=== PATIENT | male | born 1955 | race Caucasian/White ===

== ENCOUNTER 2019-03-02 17:53 | Emergency (ER) | payer OTHER ==
[~2019-03-02] VITALS: Ht 188 cm; Wt 95.0 kg
[2019-03-02] MEDS ORDERED: ASPIRIN 81 MG TABLET CHEW ONE (18:14)
[2019-03-02] MEDS ORDERED: ASPIRIN 81 MG TABLET CHEW PO ONE (18:30)
--- NOTE | 2019-03-02 18:32 | NUR ---
PT REPORTS CONSTANT L SHOULDER/NECK PAIN X THREE DAYS. +LUE PAIN/NUMBNESS. "ITS WORSE THE DAY GOES ON". DENIES PRODUCTIVE COUGH/FEVER/TRAUMA/DIAPHORESIS. PWD. BP/SPO2/ECG MONITORING IN PLACE. NSR ON MONITOR. SO AT BEDSIDE.
[2019-03-02 18:34] LABS: MEAN CORPUSCULAR HEMOGLOBIN 29.4 pg (27.5-34.5); MEAN CORPUSCULAR HGB CONC 33.3 g/dL (33.2-36.2); MEAN CORPUSCULAR VOLUME 88.3 fL (81-97); PLATELET COUNT 230 x10^3/uL (130-400); RED BLOOD COUNT 4.92 x10^6/uL (4.38-5.82); RED CELL DISTRIBUTION WIDTH 15.1 % (9.4-14.8)
[2019-03-02 18:45] LABS: ALANINE AMINOTRANSFERASE 29 U/L (12-78); ALBUMIN 4.1 g/dL (3.4-5.0); ANION GAP 9 mmol/L (5-15); CALCIUM 8.8 mg/dL (8.5-10.1); CHLORIDE 105 mmol/L (98-107); CREATININE 1.14 mg/dL (0.7-1.3)
[2019-03-02 18:49] LABS: ALKALINE PHOSPHATASE 64 U/L (45-117); BILIRUBIN,TOTAL 0.5 mg/dL (0.2-1.0); MD SCAN; TOTAL PROTEIN 7.4 g/dL (6.4-8.2); TROPONIN I < 0.015 ng/mL (0.000-0.045)
[2019-03-02 18:50] LABS: LYMPHOCYTES % (AUTO) 24 % (22-44); MONOCYTES % (AUTO) 9 % (2-9); NEUTROPHILS % (AUTO) 61 % (42-75)
[2019-03-02 18:51] LABS: BASOPHILS # (AUTO) 0.07 x10^3/uL (0-0.1); BASOPHILS % (AUTO) 1 % (0-1); EOSINOPHILS % (AUTO) 5 % (1-7); LYMPHOCYTES # (AUTO) 1.43 x10^3/uL (1-3.4); MONOCYTES # (AUTO) 0.52 x10^3/uL (0.2-0.8); NEUTROPHILS # (AUTO) 3.66 x10^3/uL (1.8-6.8)
[2019-03-02 19:16] VITALS: BP 148/85
--- NOTE | 2019-03-02 19:17 | NUR ---
POC IS DC. PT OFF MONITORING AND ALLOWED TO DRESS. SO AT BEDSIDE.
--- NOTE | 2019-03-02 19:21 | NUR ---
DC EDUCATION PROVIDED, PT DEMONSTRATES UNDERSTANDING. PT AMBULATED STEADILY TO DC WITH RN AND SO
== END 2019-03-02 19:29 | disposition home or self-care (01) ==
LOC: ED 19:05
DX: M54.12 Radiculopathy, cervical region (principal); M25.512 Pain in left shoulder; Z87.891 Personal history of nicotine dependence
CPT/HCPCS: 36415; 71046; 72050; 80053; 84484; 85025; 93005; 99284

== ENCOUNTER 2019-09-06 14:42 | Observation (INO) | payer OTHER, MEDICARE ==
[~2019-09-06] VITALS: Ht 188 cm; Wt 95.0 kg
--- NOTE | 2019-09-06 15:08 | NUR ---
PT AMBULATED TO ROOM WITH A STEADY GAIT. CHANGED INTO A HOSPITAL GOWN AND CONNECTED TO MONITORS. PT IN WITH , [facility], WITH C/O SHORTNESS OF BREATH, DIZZINESS, LIGHT-HEADNESS. [facility] ALSO REPORTS PT HAD SLURRED SPEECH 4 WEEKS AGO. MD AT BEDSIDE.
[2019-09-06] MEDS ORDERED: ASPIRIN 81 MG TABLET CHEW ONE (15:19)
[2019-09-06] MEDS ORDERED: ASPIRIN 81 MG TABLET CHEW PO ONE (15:30)
[2019-09-06 15:41] LABS: BASOPHILS # (AUTO) 0.02 x10^3/uL (0-0.1); BASOPHILS % (AUTO) 0 % (0-1); EOSINOPHILS # (AUTO) 0.31 x10^3/uL (0-0.4); EOSINOPHILS % (AUTO) 4 % (1-7); LYMPHOCYTES # (AUTO) 1.45 x10^3/uL (1-3.4); LYMPHOCYTES % (AUTO) 19 % (22-44); MD NO; MEAN CORPUSCULAR HEMOGLOBIN 29.4 pg (27.5-34.5); MEAN CORPUSCULAR HGB CONC 33.5 g/dL (33.2-36.2); MEAN CORPUSCULAR VOLUME 87.7 fL (81-97); MEAN PLATELET VOLUME 8.1 fL (7.4-10.4); MONOCYTES # (AUTO) 0.69 x10^3/uL (0.2-0.8); MONOCYTES % (AUTO) 9 % (2-9); NEUTROPHILS # (AUTO) 5.09 x10^3/uL (1.8-6.8); NEUTROPHILS % (AUTO) 67 % (42-75); PLATELET COUNT 229 x10^3/uL (130-400); RED CELL DISTRIBUTION WIDTH 15.1 % (9.4-14.8)
[2019-09-06 15:44] LABS: ALANINE AMINOTRANSFERASE 21 U/L (12-78); ALBUMIN 3.7 g/dL (3.4-5.0); ANION GAP 5 mmol/L (5-15); CALCIUM 8.7 mg/dL (8.5-10.1); CHLORIDE 107 mmol/L (98-107); CREATININE 1.23 mg/dL (0.7-1.3)
[2019-09-06 15:49] LABS: ALKALINE PHOSPHATASE 60 U/L (45-117); BILIRUBIN,TOTAL 0.5 mg/dL (0.2-1.0); TROPONIN I < 0.015 ng/mL (0.000-0.045)
--- NOTE | 2019-09-06 16:16 | NUR ---
pt resting in [facility]. pt's aox4. resps even and unlabored. all monitors in place. call light within reach.
--- NOTE | 2019-09-06 16:24 | NUR ---
hospitalist at bedside to evaluate at this time.
[2019-09-06] MEDS ORDERED: ACETAMINOPHEN 325 MG TABLET PO PRN (17:00)
--- NOTE | 2019-09-06 17:04 | NUR ---
Report called to [facility] Pt to transfer to room 511-1. Updated pt and pts spouse.
[2019-09-06 17:31] VITALS: BP 132/78
[2019-09-06] MEDS: ENOXAPARIN 40 MG/0.4 ML SQ SCH (18:01)
[2019-09-06 19:39] VITALS: BP 131/78
[2019-09-06] MEDS ORDERED: ATORVASTATIN 20 MG TABLET PO SCH (21:00)
[2019-09-07 00:20] VITALS: BP 128/82
[2019-09-07 05:54] LABS: BASOPHILS # (AUTO) 0.03 x10^3/uL (0-0.1); BASOPHILS % (AUTO) 1 % (0-1); EOSINOPHILS # (AUTO) 0.27 x10^3/uL (0-0.4); EOSINOPHILS % (AUTO) 5 % (1-7); LYMPHOCYTES % (AUTO) 20 % (22-44); MD NO; MEAN CORPUSCULAR HEMOGLOBIN 29.1 pg (27.5-34.5); MEAN CORPUSCULAR VOLUME 88.3 fL (81-97); MEAN PLATELET VOLUME 8.5 fL (7.4-10.4); MONOCYTES # (AUTO) 0.57 x10^3/uL (0.2-0.8); MONOCYTES % (AUTO) 10 % (2-9); NEUTROPHILS # (AUTO) 3.65 x10^3/uL (1.8-6.8); NEUTROPHILS % (AUTO) 65 % (42-75); PLATELET COUNT 187 x10^3/uL (130-400); RED CELL DISTRIBUTION WIDTH 15.4 % (9.4-14.8)
[2019-09-07 06:00] LABS: ANION GAP 4 mmol/L (5-15); CALCIUM 8.6 mg/dL (8.5-10.1); CHLORIDE 108 mmol/L (98-107)
[2019-09-07] MEDS ORDERED: ASPIRIN 81 MG TABLET EC PO SCH (06:00)
[2019-09-07 06:03] LABS: CHOL/HDL RATIO 4.9; CHOLESTEROL, TOTAL 212 mg/dL (140-239); CREATININE 0.97 mg/dL (0.7-1.3); HDL CHOL % 20 % (26-37); HDL CHOLESTEROL (DIRECT) 43 mg/dL (40-60); LDL CHOLESTEROL,CALCULATED 136 mg/dL (54-169); LDL/HDL RATIO 3.2 (0.5-3.0); TRIGLYCERIDES 163 mg/dL (50-200); VLDL CHOLESTEROL 33 mg/dL (0-25)
[2019-09-07 06:40] VITALS: BP 140/83
[2019-09-07 07:27] LABS: TROPONIN I < 0.015 ng/mL (0.000-0.045)
[2019-09-07 09:40] VITALS: BP 135/80
[2019-09-07 14:20] VITALS: BP 135/72
[2019-09-07] MEDS ORDERED: ATOR20TA37 PO (15:53)
[2019-09-07] MEDS ORDERED: ASPI81TA45 PO (15:53)
[2019-09-07] MEDS: ENOXAPARIN 40 MG/0.4 ML SQ SCH (17:00)
== END 2019-09-07 18:11 | disposition home or self-care (01) ==
LOC: ED 15:48 → INTOOBSV 16:17 → EDIP 16:17 → 5SO 17:21
PROVIDERS: ADMIT Internal Medicine Infectious Disease; ATTEND Hospitalist
DX: R61 Generalized hyperhidrosis (principal); R06.09 Other forms of dyspnea; M54.12 Radiculopathy, cervical region; F17.210 Nicotine dependence, cigarettes, uncomplicated
CPT/HCPCS: 36415; 71045; 80048; 80053; 80061; 83880; 84484; 85025; 93005; 93017; 93306; 93356; 99284; G0378; J1650; 99285